=== PATIENT | male | born 1990 | race Caucasian/White ===

== ENCOUNTER 2018-05-28 10:24 | Emergency (ER) | payer OTHER ==
--- NOTE | 2018-05-28 11:36 | ED Physician Documentation ---
PD HPI SKIN - Stated complaint Stated Complaint: BUMPS ALL OVER/SORE THROAT - Chief complaint Chief Complaint: Wound - History obtained from History obtained from: Patient, Family - History of Present Illness Timing - onset: Today Timing - duration: Hours Timing - details: Abrupt onset, Still present Location: [place] Quality / character: Itchy, Discolored Associated symptoms: Other (sore throat) Contributing factors: No: Exposed to medication, Exposed to food, Exposed to soap / lotion Similar symptoms before: Has not had sx before Recently seen: Not recently seen - Additional information Additional information: 27-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 He states he got home from work went to bed for a couple of hours and woke up with a rash over his entire body. He has a bit of a scratchy throat but does not feel ill otherwise. He is not having any difficulty breathing. He states that he was not ill this past week and he has not had any new foods any different foods or any new or different medications. He denies any prior history of urticaria. He denies any cough or congestion and states that his throat just feels a little scratchy. Review of Systems Constitutional: denies: Fever, Chills, Myalgias, Fatigue, Sweats Eyes: denies: Decreased vision Ears: denies: Ear pain Nose: denies: Rhinorrhea / runny nose, Congestion Throat: reports: Sore throat Cardiac: denies: Chest pain / pressure, Palpitations Respiratory: denies: Dyspnea, Cough GI: reports: Diarrhea. denies: Abdominal Pain, Nausea, Vomiting, Constipation : denies: Dysuria, Frequency Skin: reports: Rash Musculoskeletal: denies: Neck pain, Back pain, Extremity pain Neurologic: denies: Generalized weakness, Focal weakness, Numbness PD PAST MEDICAL HISTORY - Past Medical History Past Medical History: Yes Endocrine/Autoimmune: HyPOthyroidism - Past Surgical History Past Surgical History: No - Present Medications Home Medications: Ambulatory Orders Medication Instructions Recorded Confirmed Levothyroxine Sodium [Synthroid] 75 mcg PO DAILY 05/28/18 05/28/18 - Allergies Allergies/Adverse Reactions: Allergies Allergy/AdvReac Type Severity Reaction Status Date / Time No Known Drug Allergies Allergy Verified 05/28/18 10:34 - Social History Does the pt smoke?: No Smoking Status: Never smoker Does the pt drink ETOH?: Yes Does the pt have substance abuse?: No - Immunizations Immunizations are current?: Yes PD ED PE NORMAL - Vitals Vital signs reviewed: Yes (hypertensive) - General General: Alert and oriented X 3, No acute distress, Well developed/nourished - HEENT HEENT: Atraumatic, PERRL, EOMI, Ears normal, Moist mucous membranes, Pharynx benign, Dentition benign - Neck Neck: Supple, no meningeal sign, No bony TTP - Cardiac Cardiac: RRR, No murmur - Respiratory Respiratory: No respiratory distress, Clear bilaterally - Abdomen Abdomen: Soft, Non tender - Back Back: No CVA TTP, No spinal TTP - Derm Derm: Normal color, Warm and dry, Other (generalized urticaria over entire body. ) - Extremities Extremities: No deformity, No edema - Neuro Neuro: Alert and oriented X 3, race relations adviser 2-12 intact, No motor deficit, No sensory deficit, Normal speech Eye Opening: Spontaneous Motor: Obeys Commands Verbal: Oriented GCS Score: 15 - Psych Psych: Normal mood, Normal affect Results - Vitals Vitals: Vital Signs - 24 hr 05/28/18 10:35 Temperature 36.0 C L Heart Rate 61 Respiratory 16 Rate Blood Pressure 137/90 H O2 Saturation 98 Oxygen O2 Source Room air - Labs Labs: Laboratory Tests 05/28/18 11:36 Group A Strep Rapid Negative PD MEDICAL DECISION MAKING - ED course Complexity details: reviewed results, considered differential, d/w patient, d/w family ED course: 27-year-old male with urticaria has a sore throat with a negative rapid strep and no specific explanation. He is administered dexamethasone 10 mg orally here and instructed to take Benadryl 25 mg every 6 hours for the next 2 days. - Sepsis Event Vital Signs: Vital Signs - 24 hr 05/28/18 10:35 Temperature 36.0 C L Heart Rate 61 Respiratory 16 Rate Blood Pressure 137/90 H O2 Saturation 98 Oxygen O2 Source Room air Departure - Departure Disposition: 01 Home, Self Care Clinical Impression: Urticaria Condition: Stable Instructions: ED Urticaria Follow-Up: KAZ SILVERIO [Primary Care Provider] - Comments: Take Benadryl 25 mg every 6 hours for the next 2 days. This medication will make you sleepy and you will not be able to drive or operate machinery after you have taken it. Forms: Activity restrictions
[2018-05-28 12:28] VITALS: BP 137/94
== END 2018-05-28 12:29 | disposition home or self-care (01) ==
LOC: ED 10:24
DX: L50.9 Urticaria, unspecified (principal)
CPT/HCPCS: 87070; 87430; 99283